=== PATIENT | female | born 1995 | race Caucasian/White ===

== ENCOUNTER → 2016-03-08 | Day surgery (SDC) | payer MEDICAID ==
[2016-01-30 21:51] VITALS: BMI 25.9
[~2016-03-08] MED LIST: BUPIVACAINE 0.25%-EPINEPHRINE 1:200,000 30 ML ONE; DEXAMETHASONE 4 MG/ML VIAL IV ONE; FENTANYL 100 MCG/2 ML VIAL IV ONE; FENTANYL 100 MCG/2 ML VIAL IV PRN; Hydrocod 7.5mg-Acetamin 325 mg/15 ml liquid ONE; LABETALOL 20 MG/4 ML SYRINGE IV PRN; LIDOCAINE 100 MG PFS IV ONE; MEPERIDINE 25 MG/ML TUBEX IV PRN; MIDAZOLAM 2 MG/2 ML VIAL IV ONE; ONDANSETRON HCL 4 MG ODT TAB PO PRN; ONDANSETRON HCL 4 MG/2 ML VIAL IV ONE; ONDANSETRON HCL 4 MG/2 ML VIAL IV PRN; PROPOFOL 200 MG/20 ML VIAL IV ONE; SUCCINYLCHOLINE 20 MG/1 ML INJ 10 ML MDV IV ONE; hydrALAZINE 20 MG/ML VIAL IV PRN
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
--- NOTE | 2016-03-08 11:45 | HIMOPRPT ---
DATE OF PROCEDURE: 03/08/16 PREOPERATIVE DIAGNOSES: 1. Chronic sore throat. 2. Recurrent tonsillitis. 3. Hypertrophy of tonsils. POSTOPERATIVE DIAGNOSES: 1. Chronic sore throat. 2. Recurrent tonsillitis. 3. Hypertrophy of tonsils. PROCEDURES: Tonsillectomy. SURGEON: Duncan Gregory DO. ANESTHESIA: General endotracheal with 0.25% Marcaine and 1:200,000 epinephrine local injection. ESTIMATED BLOOD LOSS: Minimal, less than 1 mL. COMPLICATIONS: None. SPECIMEN REMOVED: Bilateral tonsils. ANESTHESIOLOGIST: Dr. Jimenez. ASSISTANTS: None. WOUND CLASSIFICATION: II. FLUID REPLACEMENT: Approximately 1000 mL of lactated Ringer. DRAINS: None. PACKING: None. OPERATIVE FINDINGS: Bilateral tonsils were moderately hypertrophic, 3+, and cryptic, with multiple tonsilloliths. No acute tonsillar exudates noted. INDICATIONS: This patient is a 20-year-old female referred to my office for evaluation of chronic sore throat, secondary to recurrent episodes of tonsillitis. The patient states that she has had approximately 7-8 episodes of tonsillitis over the past year or so. Her symptoms have been refractory to multiple rounds of oral antibiotics. Examination in the office demonstrated moderate hypertrophic tonsils. Options were reviewed and discussed with the patient. She is here today for elective tonsillectomy. PROCEDURE IN DETAIL: All risks, benefits, potential complications, and alternatives were reviewed and discussed with the patient. All of the patient's questions and concerns were fully answered and addressed. Consent was signed and charted. The patient was identified in the preoperative holding area, and brought to the operating room and placed on the operating table in supine position. General endotracheal anesthesia was administered by the anesthesiologist. Once the airway was secured, the patient and the table were then turned 90 degrees. A shoulder roll was placed. The patient was then prepped and draped in the usual sterile fashion as appropriate for tonsillectomy procedure. A Teagan-Tho mouth gag with a large-sized tongue retractor was placed in the oral cavity. The tongue and mandible were retracted anteriorly. This device was then suspended to the [place] stand. A curved Allis clamp was used to grasp the left tonsil. With constant medial traction, this tonsil was resected from the tonsillar fossa. The dissection was performed from the superior to the inferior pole along the subcapsular plane. No bleeding or oozing was in countered. The Allis clamp was now used to grasp the right tonsil. With constant medial traction, this tonsil was resected from the tonsillar fossa. The dissection was performed from the superior to the inferior pole along the subcapsular plane. No bleeding or oozing was in countered. Each tonsillar fossa was then infiltrated with approximately 5 mL of 0.25% Marcaine in 1:200,000 epinephrine local injection. Minor oozing was noted from bilateral tonsillar fossa injection sites, mainly in the mid tonsillar fossa. These areas of oozing were easily controlled with Bovie cautery. The tongue retractor was taken off of the Turner stand to allow for some reperfusion back to the tongue as well as taking tension off of the tonsillar fossa. The tongue retractor was then resuspended. Re-evaluation in the tonsillar fossae did not demonstrate any recurrent bleeding or oozing. An orogastric tube was placed and stomach contents were then suctioned away. The orogastric tube was removed. The tongue retractor was taken off of the Turner stand and removed from the oral cavity along with the Teagan-Tho mouth gag. The patient tolerated the procedure. There were no complications. The shoulder roll was removed. The patient and the table were then turned back to the anesthesiologist. The patient was subsequently awakened and extubated by the anesthesiologist and brought out to the recovery area in satisfactory condition.
[2016-03-08 12:48] VITALS: TEMP 97.3
[2016-03-08 13:27] VITALS: PULSE 88
--- NOTE | 2016-03-08 14:48 | SC.ANESPOS ---
Post-Anesthesia Note LOC: Fully Awake Post-Anesthesia Assessment: Awake, Returned to Baseline, Hemodynamically Stable , Pain Control Adequate Phase I & II Recovery Complete: Yes Apparent Anesthesia Complication: No : N PACU Discharge Time: 12:50 - Vital Signs Blood Pressure: 147/67 Pulse: 88 Resp Rate: 16 O2 Sat: 96 Temp: 97.3 F - Comments Anesthesia Discharge Time Report Time 12:50
[2016-03-08 14:49] VITALS: BP 147/67
== END ==
LOC: SDC 08:59
PROVIDERS: ATTEND Otolaryngology Facial Plastic Surgery
PROC: 0CTPXZZ Resection of Tonsils, External Approach (ICD-10-PCS; principal; 2016-03-08 09:45)
DX: J35.01 Chronic tonsillitis (principal); J45.909 Unspecified asthma, uncomplicated; G47.30 Sleep apnea, unspecified; K21.9 Gastro-esophageal reflux disease without esophagitis; G43.909 Migraine, unspecified, not intractable, without status migrainosus; F41.9 Anxiety disorder, unspecified; F31.9 Bipolar disorder, unspecified; F20.9 Schizophrenia, unspecified; F17.210 Nicotine dependence, cigarettes, uncomplicated; M19.90 Unspecified osteoarthritis, unspecified site; Z79.899 Other long term (current) drug therapy
CPT/HCPCS: 42826; 81025; J0330; J1100; J2001; J2250; J2405; J3010; J3490